=== PATIENT | male | born 1990 | race Hispanic/Latino ===

== ENCOUNTER 2018-04-30 23:47 | Emergency (ER) | payer BC ==
[2018-05-01] MEDS ORDERED: Sodium Chloride 0.9% 1,000 ML IV STA (00:15)
--- NOTE | 2018-05-01 01:04 | ED PDOC ---
HPI: Psych/Substance Abuse Time Seen by Provider: 04/30/18 23:59 Chief Complaint (Nursing): Substance Abuse Chief Complaint (Provider): Substance Abuse History Per: Patient History/Exam Limitations: no limitations Onset/Duration Of Symptoms: Hrs (2-3) Modifying Factor(s): Marijuana, Cocaine Additional Complaint(s): Patient is a 27 y/o male who presents to the ED complaining of chest pain, onset x2-3 hours ago. Patient admits to using cocaine prior to the d evelopment of chest pain. Patient also admits to using marijuana and the usage of a vape device. Patient denies nausea, vomiting, or diaphoresis. He reports the pain as a pressure-like sensation. Patient also reports palpitations and a sense of generalized numbness. Past Medical History Reviewed: Historical Data, Nursing Documentation, Vital Signs Vital Signs: Last Vital Signs Temp 98.6 F 04/30/18 23:54 Pulse 134 H 04/30/18 23:54 Resp 16 04/30/18 23:54 BP 139/51 L 04/30/18 23:54 Pulse Ox 98 04/30/18 23:54 - Medical History PMH: No Chronic Diseases - Surgical History Surgical History: Tonsillectomy - Family History Family History: States: Unknown Family Hx - Social History Drugs: Cannabis, Cocaine - Allergies Allergies/Adverse Reactions: Allergies Allergy/AdvReac Type Severity Reaction Status Date / Time No Known Allergies Allergy Verified 04/30/18 23:51 Review of Systems ROS Statement: Except As Marked, All Systems Reviewed And Found Negative Constitutional: Negative for: Sweats Cardiovascular: Positive for: Chest Pain, Palpitations Gastrointestinal: Negative for: Nausea, Vomiting Neurological: Positive for: Numbness Physical Exam - Reviewed Nursing Documentation Reviewed: Yes Vital Signs Reviewed: Yes - Physical Exam Appears: Positive for: Well, Non-toxic, No Acute Distress (anxious in appearance) Head Exam: Positive for: ATRAUMATIC, NORMOCEPHALIC Skin: Positive for: Normal Color, Warm, Dry Eye Exam: Positive for: EOMI, Normal appearance, PERRL Neck: Positive for: Normal, Painless ROM Cardiovascular/Chest: Positive for: Tachycardia Respiratory: Positive for: Normal Breath Sounds. Negative for: Respiratory Distress Gastrointestinal/Abdominal: Positive for: Normal Exam, Soft. Negative for: Tenderness Back: Positive for: Normal Inspection Extremity: Positive for: Normal ROM. Negative for: Pedal Edema, Deformity Neurologic/Psych: Positive for: Alert, Oriented. Negative for: Motor/Sensory Deficits - Laboratory Results Result Diagrams: 05/01/18 01:00 EST 05/01/18 01:00 EST - ECG O2 Sat by Pulse Oximetry: 98 (RA) Pulse Ox Interpretation: Normal Medical Decision Making Medical Decision Making: Time: 00:00 Initial Impression: 27 y/o male with chest pain in setting of cocaine abuse Initial Plan: EKG Alcohol serum Drug screen CMP Troponin I CBC w/ diff Aspirin IV Fluids Time: :26 Labs reviewed no clinically significant abnormalities except UDip which is positive for cocaine. Troponin repeated from initial and has remained negative. Symptoms have resolved and provider has reinforced the need to abstain from cocaine. Patient verbalized understanding. Diagnosis is chest pain and cocaine abuse. Scribe Attestation: Documented by Cristiano Portillo acting as a scribe for Scotty Celis MD Provider Scribe Attestation: All medical record entries made by the Scribe were at my direction and personally dictated by me. I have reviewed the chart and agree that the record accurately reflects my personal performance of the history, physical exam, medical decision making, and the department course for this patient. I have also personally directed, reviewed, and agree with the discharge instructions and disposition. Disposition - Clinical Impression Clinical Impression: Cocaine abuse, Chest pain - Patient ED Disposition Is Patient to be Admitted: No - Disposition Disposition: Routine/Home Disposition Time: 05:26 Condition: STABLE Additional Instructions: STACIE MORE, thank you for letting us take care of you today. Your provider was Scotty Celis MD and you were treated for POSS SUBSTANCE ABUSE. The emergency medical care you received today was directed at your acute symptoms. If you were prescribed any medication, please fill it and take as directed. It may take several days for your symptoms to resolve. Return to the Emergency Department if your symptoms worsen, do not improve, or if you have any other problems. Please contact your doctor or call one of the physicians/clinics you have been referred to that are listed on the Patient Visit Information form that is includ ed in your discharge packet. Bring any paperwork you were given at discharge with you along with any medications you are taking to your follow up visit. Our treatment cannot replace ongoing medical care by a primary care provider outside of the emergency department. Thank you for allowing the [facility] team to be part of your care today. If you had an X-Ray or CT scan: A Radiologist will review the ED reading if any change in treatment is needed we will contact you. If you had a blood, urine, or wound culture: It will take several days for the results, if any change in treatment is needed we will contact you. If you had an STI test: It will take 48 hours for the results. Please call after 1 week if you have not heard back. Instructions: Chest Pain, Cocaine Forms: [facility] ([place])
[2018-05-01 01:05] LABS: BASO # 0.1 K/uL (0.0-0.2); BASO % 0.4 % (0.0-2.0); EOS % 0.2 % (0.0-4.0); HEMOGLOBIN 16.4 g/dL (12.0-18.0); LYMPH # 1.5 K/uL (1.0-4.3); LYMPH % 10.9 % (20.0-40.0); MEAN CELL VOLUME 93.4 fl (80.0-94.0); MEAN CORPUSCULAR HEMOGLOBIN 31.8 pg (27.0-31.0); MEAN CORPUSCULAR HGB CONC 34.1 g/dL (33.0-37.0); MEAN PLATELET VOLUME 7.8 fl (7.2-11.7); MONO % 7.5 % (0.0-10.0); NEUT # 11.2 K/uL (1.8-7.0); RBC 5.14 Mil/uL (4.40-5.90); RED CELL DISTRIBUTION WIDTH 12.3 % (11.5-14.5); WHITE BLOOD COUNT 13.8 K/uL (4.8-10.8)
[2018-05-01 01:18] LABS: ALB/GLOB RATIO 1.4 (1.0-2.1); ALBUMIN 4.7 g/dL (3.5-5.0); ALT/SGPT 33 U/L (21-72); AST/SGOT 23 U/L (17-59); BLOOD UREA NITROGEN 12 mg/dl (9-20); GFR NON-AFRICAN AMERICAN > 60
[2018-05-01 01:33] LABS: BARBITURATES, UR NEGATIVE (NEGATIVE); BENZODIAZEPINES, UR NEGATIVE (NEGATIVE); OPIATES, UR NEGATIVE (NEGATIVE); PHENCYCLIDINE, UR NEGATIVE (NEGATIVE)
[2018-05-01 06:00] VITALS: BP 122/53; PULSE 87; RESP 18; TEMP 98.2
[2018-05-01 06:04] VITALS: O2SAT 98
--- NOTE | 2018-05-01 09:23 | CARD ---
APPROVED REPORT Date of service: 05/01/2018 EKG Measurement Heart [id number] <Conclusion> Normal sinus rhythm Normal ECG
--- NOTE | 2018-05-01 10:06 | CARD ---
APPROVED REPORT Date of service: 04/30/2018 EKG Measurement Heart [id number] <Conclusion> Sinus tachycardia with occasional and consecutive premature ventricular complexes Abnormal ECG
== END 2018-05-01 05:30 | disposition home or self-care (01) ==
LOC: H.ER 23:47
DX: F14.10 Cocaine abuse, uncomplicated (principal); R07.9 Chest pain, unspecified
CPT/HCPCS: 80053; 84484; 85025; 93005; G0480; J7030